=== PATIENT | male | born 1965 | race African-American/Black ===

== ENCOUNTER 2019-02-06 11:04 | Observation (INO) ==
[2019-02-06] MEDS ORDERED: NS 1,000 ML IV ONE (11:56)
[2019-02-06] MEDS ORDERED: ZOFRAN IV ONE ×2 (11:56→14:29)
[2019-02-06 12:10] LABS: BASO# 0.01 X1000 (0.0-0.2); BASO% 0.1 % (0.0-0.8); EOS# 0.13 X1000 (0.0-0.7); EOS% 1.7 % (0.0-10.0); HEMATOCRIT 43.2 % (42.0-52.0); HEMOGLOBIN 15.1 g/dL (14.0-18.0); IMM GRAN# 0.01 X1000 (0.0-0.04); IMM GRAN% 0.1 % (0.0-0.5); LYMPH# 0.48 X1000 (1.2-3.4); LYMPH% 6.3 % (20.5-51.1); MCH 27.3 PG (27-31); MONO# 0.41 X1000 (0.11-0.59); MONO% 5.4 % (1.7-9.3); NEUT# 6.57 X1000 (1.4-6.5); NEUT% 86.4 % (42.2-75.2); PLT 127 X1000 (130-400); RBC 5.54 XMIL (4.7-6.1); RDW 13.6 % (11.5-14.5); WBC 7.61 X1000 (4.8-10.8)
[2019-02-06 12:14] LABS: AGAP 14; ALKALINE PHOSPHATASE 94 U/L (32-122); BUN 10 mg/dL (8-22); CHLORIDE 106 mmol/L (98-107); COSMO 288; CREATININE 0.8 mg/dL (0.7-1.2); ESTIMATED GFR > 60; GLUCOSE 129 mg/dL (70-104); GOT 26 U/L (10-34); GPT 35 U/L (10-44); POTASSIUM 3.9 mmol/L (3.5-5.1); SODIUM 144 mmol/L (136-145); TCO2 24 mmol/L (25-35); TOTAL PROTEIN 7.2 g/dL (6.3-8.3)
--- NOTE | 2019-02-06 12:23 | Diag Imaging Result Doc PS360 ---
CT HEAD W/O CONTRAST - 02/06/2019 INDICATION: gutierrez, nv, weakness. COMPARISON: 06/05/2014 FINDINGS: Stable old lacunar in the anterior limb of the left internal capsule. There is some mild basal ganglia chronic microvascular ischemia on the right side. No intracranial mass or hemorrhage. The skull is intact. Stable small mucosal retention cyst in the right sphenoid sinus. Otherwise the sinuses are clear. IMPRESSION: Nonspecific, chronic appearing white matter microvascular ischemia. No acute process. This exam was performed using automated exposure control, adjustment of mA or kV according to patient size, and/or use of iterative reconstruction technique Electronically signed by Stevie Luther 02/06/2019 12:21 PM
--- NOTE | 2019-02-06 12:35 | ED EKG INTERP ---
This chart was entered by Daxa Duong Scribe, acting as scribe for Radha Marvin DO. EKG Interpretation - EKG Time of EKG reading by physician:: 11:41 EKG Read and Signed by:: Radha Marvin EKG Interpretation (*Must complete 3 of following elements*): Normal Rate: 95 Rhythm: sinus rhythm with premature supraventricular complex w/ occ pvc [place]: normal QRS: PVC's AR Interval: normal ST Wave: normal Attestation - Physician/ KEELY Attestation Patient care was provided by Advanced Practice Provider:: No The physician spent face to face time with patient:: Yes Advanced Practice Provider documentation review:: Supervising physician onsite and consulted in the evaluation and care of this patient. The physician did have a face to face encounter with the patient. This chart was documented by the indicated scribe, (Daxa Duong Scribe) and accurately reflects the services I performed and decisions made by me, Radha Marvin DO, as attested by the provider's signature.
--- NOTE | 2019-02-06 13:39 | EKG Report ---
Test Performed on : 02/06/2019 11:41:55 AM Test Reason : weakness, sob Blood Pressure : / mmHG Vent. Rate : 095 BPM Atrial Rate : 095 BPM P-R Int : 150 ms QRS Dur : 066 ms QT Int : 344 ms P-R-T Axes : 054 017 -10 degrees QTc Int : 432 ms Sinus rhythm. with premature supraventricular complexes. and with occasional premature ventricular co mplexes. Otherwise normal ECG When compared with ECG of 14-MAY-2007 01:34, premature ventricular complexes. are now present premature supraventricular complexes. are now present Unconfirmed Result
--- NOTE | 2019-02-06 14:50 | PROVIDER DOCUMENTATION ---
This chart was entered by Daxa Duong Scribe, acting as scribe for Radha Marvin DO. HPI-General Adult - General Chief Complaint: Dizziness Stated Complaint: DIZZY WEAK Time Seen by Provider: 02/06/19 11:31 Source: patient Allergies/Adverse Reactions: Patient Allergies Allergy/AdvReac Type Severity Reaction Status Date / Time No Known Allergies Allergy Verified 02/06/19 11:10 Home Medications: Home Medication List Medication Instructions Recorded Confirmed Last Taken Type Lisinopril 10 mg PO DAILY 06/05/14 02/06/19 06/05/14 07:00 History Metformin E.r. [Glucophage Xr] 1,000 mg PO BID 06/05/14 02/06/19 06/05/14 07:00 History ATORVAstatin [Lipitor] 10 mg PO QHS 02/06/19 02/06/19 Unknown History - History of Present Illness -Gen Adult Nature of Presenting Problems: 53 yom presents to the ed with acute onset of diffuse weakness, dizziness, FRANCIS and nausea and vomiting x4 this am upon waking. pt on exam is nontoxic in appearance Location of Pain/Injury: reports: generalized (weakness) Quality of Pain: reports: dull (FRANCIS) Severity: reports: moderate Onset/Duration: reports: this morning Timing: reports: still present Context/Activities at Onset: reports: light activity Modifying Factors: improves with: nothing Associated Symptoms: reports: headaches, malaise, nausea, vomiting, weakness. denies: back/neck pain, chest pain, cough, diarrhea, fever/chills, trouble walking Similar Symptoms Previously?: No Recently seen or treated by another doctor?: No Review of Systems - Adult - REVIEW OF SYSTEMS - ADULT Constitutional: denies: chills, fever Eyes: reports: no symptoms reported Ears, Nose, Mouth & Throat: reports: no symptoms reported Cardiovascular: denies: chest pain, palpitations, syncope Respiratory: denies: cough, shortness of breath, wheezing Gastrointestinal: reports: see HPI, nausea, vomiting. denies: abdominal pain, diarrhea Genitourinary: reports: no symptoms reported Musculoskeletal: reports: see HPI, other (generalized weakness). denies: back pain, neck pain Integumentary: reports: no symptoms reported Neurological: reports: see HPI, headache/migraines. denies: ataxia, dizziness/vertigo, slurred speech, tremors Psychiatric: reports: no symptoms reported Endocrine: reports: no symptoms reported Hematologic/Lymphatic: reports: no symptoms reported Allergic/Immunologic: reports: no symptoms reported All Other Systems: Reviewed and Negative Past History - Adult - PAST MEDICAL HISTORY-ADULT Review of Records: reports: Old Records Reviewed, Nursing Assessment Review, Medications Reviewed, Social history reviewed & non-contributory. Major Childhood Illnesses: reports: denies history Cardiovascular: reports: HTN, hyperlipidemia Respiratory: reports: denies history Gastrointestinal: reports: denies history Genitourinary: reports: denies history Musculoskeletal: reports: denies history Hand Dominance: Right Handed Neurological: reports: CVA. denies: stroke deficits Psychiatric: reports: denies history Endocrine/Immune: reports: Diabetes Diabetes Type: Type 2 Other Conditions: reports: denies history - PRIOR SURGERIES/PROCEDURES Surgical/Procedure History: reports: appendectomy - IMMUNIZATION STATUS Childhood Immunizations: See Nurse Assessment Flu Vaccine: See Nurse Assessment - FAMILY HISTORY Family History: reviewed, not pertinent - SOCIAL HISTORY Smoking: denies Substance Use: denies Living Situation: family Physical Exam-General - PHYSICAL EXAM-ADULT Initial Vital Signs Reviewed: Yes - CONSTITUTIONAL General Appearance: alert, mild distress, other (diffuse weakness) - EYES Eyes: PERRL/EOMI, pink conjunctivae - HEAD, EARS, NOSE, MOUTH & THROAT HENMT: moist mucous membranes - NECK Neck: non-tender, full range of motion, supple, normal inspection - RESPIRATORY Respiratory: chest non-tender, lungs clear, normal breath sounds - CARDIOVASCULAR Cardiovascular: normal peripheral pulses, regular rate, rhythm - GASTROINTESTINAL (ABDOMEN) Abdominal Exam: normal bowel sounds, non tender, soft, other (c/o nausea on exam) - GENITOURINARY Male Genitalia: deferred Rectal Exam: deferred Hemoccult Exam: deferred - LYMPHATIC Lymphatic: no adenopathy - MUSCULOSKELETAL Back Exam: normal inspection, no CVA tenderness, no vertebral tenderness Extremity: normal range of motion, non-tender, normal inspection, normal capillary refill - SKIN Integumentary: normal color, normal turgor, warm/dry - NEUROLOGIC Neurologic: grossly normal - PSYCHIATRIC Psych/Mental Status: normal mood/affect, normal thought content, normal thought process, oriented x 3 Progress - PLAN OF CARE/RESULTS Progress/Plan/Lab Results: Vital Signs - 8 hr 02/06/19 11:08 Temperature 97.7 F Pulse Rate 84 Respiratory Rate 18 Blood Pressure 145/91 O2 Sat by Pulse Oximetry 96 Laboratory Results - last 24 hr 02/06/19 02/06/19 02/06/19 11:27 11:30 11:30 WBC 7.61 RBC 5.54 Hgb 15.1 Hct 43.2 MCV 78.0 L MCH 27.3 MCHC 35.0 RDW Std Deviation 13.6 Plt Count 127 L MPV Not Reportable Immature Gran % (Auto) 0.1 Neut % (Auto) 86.4 H Lymph % (Auto) 6.3 L [place] % (Auto) 5.4 Eos % (Auto) 1.7 Baso % (Auto) 0.1 Immature Gran # (Auto) 0.01 Neut # (Auto) 6.57 H Lymph # (Auto) 0.48 L [place] # (Auto) 0.41 Eos # (Auto) 0.13 Baso # (Auto) 0.01 Sodium Potassium Chloride Carbon Dioxide Anion Gap BUN Creatinine Estimated GFR/1.73 m2 BUN/Creatinine Ratio Glucose POC Glucose 123 H D Calculated Osmolality Calcium Total Bilirubin AST ALT Alkaline Phosphatase Troponin T < 0.010 Total Protein Albumin Globulin Albumin/Globulin Ratio 02/06/19 11:30 WBC RBC Hgb Hct MCV MCH MCHC RDW Std Deviation Plt Count MPV Immature Gran % (Auto) Neut % (Auto) Lymph % (Auto) [place] % (Auto) Eos % (Auto) Baso % (Auto) Immature Gran # (Auto) Neut # (Auto) Lymph # (Auto) [place] # (Auto) Eos # (Auto) Baso # (Auto) Sodium 144 Potassium 3.9 Chloride 106 Carbon Dioxide 24 L Anion Gap 14 BUN 10 Creatinine 0.8 Estimated GFR/1.73 m2 > 60 BUN/Creatinine Ratio 13 Glucose 129 H POC Glucose Calculated Osmolality 288 Calcium 10.0 Total Bilirubin 0.80 AST 26 ALT 35 Alkaline Phosphatase 94 Troponin T Total Protein 7.2 Albumin 5.0 Globulin 2.0 Albumin/Globulin Ratio 2.0 Orders Category Date Time Status CT HEAD W/O CONTRAST [CT] Stat Exams 02/06/19 11:54 Completed CBC WITH ELECTRONIC DIFF [HEME] Stat Lab 02/06/19 11:30 Completed COMPREHENSIVE METABOLIC PANEL [CHEM] Stat Lab 02/06/19 11:30 Completed TROPONIN T Stat Lab 02/06/19 11:30 Completed 0.9% Sodium Chloride Inj [Ns] 1,000 ml Med 02/06/19 11:56 Discontinued IV 999 mls/hr Ondansetron [Zofran] Med 02/06/19 11:56 Discontinued 4 mg IV NOW ONE EKG [EKG] Stat Ther 02/06/19 11:54 Ordered Considerations include but not limited to: CVA, TIA, SAH, heat exhaustion, ACS, AMI. His head CT is WNL and CTA head and neck pending at the time of admission. He is neurologically intact, with no new neuro deficits (he states residual history of difficulty speaking from previous CVA). NIH Stroke Scale is 0 based on new symptoms. Given his history or previous CVA and ongoing weakness/nausea, he was admitted to the hospitalist service for further eval and tx. Case discussed with Dr Brizuela. Result Diagrams: 02/07/19 05:07 02/07/19 05:07 - REASSESSMENT Reassessment #1 Time Reassessed: 13:35 Status: improving (pt is calm and resting in bed) - CT/MRI 1 CT Study: Head Impression: See EMR Report (CT HEAD W/O CONTRAST - 02/06/2019 INDICATION: francis, nv, weakness. COMPARISON: 06/05/2014 FINDINGS: Stable old lacunar in the anterior limb of the left internal capsule. There is some mild basal ganglia chronic microvascular ischemia on the right side. No intracranial mass or hemorrhage. The skull is intact. Stable small mucosal retention cyst in the right sphenoid sinus. Otherwise the sinuses are clear. IMPRESSION: Nonspecific, chronic appearing white matter microvascular ischemia. No acute process. This exam was performed using automated exposure control, adjustment of mA or kV according to patient size, and/or use of iterative reconstruction technique Electronically signed by Stevie Luther 02/06/2019 12:21 PM 02/06/19 1221 Interpreting Physician: Stevie Luther MD Dictated Date/Time: 02/06/19 1219 cc: Radha Marvin DO; Juani Iqbal MD) - CONSULTS/PCP/HOSPITALIST Notification #1 *Consult/PCP/Hospitalist*: hospitalist dr brizuela Time Discussed: 14:37 Consult Disposition: Admit Departure - Departure Date of Disposition Decision: 02/06/19 Time of Disposition Decision: 14:49 DIAGNOSIS: Heat exhaustion Qualifiers: Encounter type: initial encounter Qualified Code(s): T67.5XXA - Heat exhaustion, unspecified, initial encounter Nausea & vomiting Qualifiers: Vomiting type: unspecified Vomiting Intractability: non-intractable Qualified Code(s): R11.2 - Nausea with vomiting, unspecified Disposition: ADMITTED INPATIENT 09 Certified Medical Emergency: Emergent Condition: Fair - Critical Care Note This patient required my direct & personal management of CC.: No Attestation - Physician/ KEELY Attestation Patient care was provided by Advanced Practice Provider:: No The physician spent face to face time with patient:: Yes Advanced Practice Provider documentation review:: Supervising physician onsite and consulted in the evaluation and care of this patient. The physician did have a face to face encounter with the patient. This chart was documented by the indicated scribe, (Daxa Duong Scribe) and accurately reflects the services I performed and decisions made by me, Radha Marvin DO, as attested by the provider's signature.
--- NOTE | 2019-02-06 15:17 | Diag Imaging Result Doc PS360 ---
EXAM: CT ANGIOGRAM HEAD/NECK HISTORY: WEAKNESS, NV. H/O PREVIOUS CVA. TECHNIQUE: 1. CT angiogram head with contrast with MIP images 2. CT angiogram neck with contrast with MIP images COMPARISON: None. FINDINGS: Angiogram head: Normal flow within each distal internal carotid artery. Normal filling of the anterior and middle cerebral arteries. Normal flow in the basilar and posterior cerebral arteries. No aneurysm identified. CT angiogram neck: Normal flow within each common carotid artery. Normal flow within each internal carotid artery. No occlusion or stenosis. IMPRESSION: Angiogram head: No abnormality identified Angiogram neck: Normal exam This exam was performed using automated exposure control, adjustment of mA or kV according to patient size, and/or use of iterative reconstruction technique. Electronically signed by Fabricio Escalante 02/06/2019 3:15 PM
[2019-02-06] MEDS ORDERED: ZOFRAN IV PRN (17:05)
[2019-02-06] MEDS: NS 1,000 ML IV SCH ×2 (17:30→23:59)
--- NOTE | 2019-02-06 22:30 | HISTORY AND PHYSICAL ---
CHIEF COMPLAINT: Dizziness, nausea and vomiting. HISTORY OF PRESENT ILLNESS: The patient is a very pleasant 53-year-old male who notes that yesterday he felt in his usual state of health. He went to work this morning and started having dizziness, lightheaded, felt weak and fatigued. Since then he has developed nausea and vomiting. He has vomited several times. Denies any hematemesis, hematochezia or melena. Denies any diarrhea or constipation. He states he has had a headache and diffuse weakness, but no focal weakness. MEDICATIONS: Lisinopril 10, metformin 1000 daily, Lipitor 10. REVIEW OF SYSTEMS: As noted above. Denies any fevers, chills, cough or congestion. Notes that he overall feels bad. He is having nausea and vomiting. Denies any diarrhea or constipation. States he is having generalized weakness, headaches and fatigue. He has had some dizziness. Denies any blurred vision or change in vision. Denies any focalized numbness, tingling or weakness in his extremities. Denies any chest pain or palpitations. Denies true fevers or chills. PAST MEDICAL HISTORY: Hypertension, diabetes, high cholesterol. He had a CVA a couple of years ago. He had an appendectomy several years ago. FAMILY HISTORY: Noncontributory. PHYSICAL EXAMINATION: VITAL SIGNS: Reviewed. Temperature 97 degrees, pulse 84, respiratory rate 18, BP 145/91, saturation 96% on room air. GENERAL: The patient is awake, alert. He is in no current respiratory distress, but he is obviously somewhat tired and fatigued appearing. HEENT: Normocephalic. NECK: Supple. CARDIOVASCULAR: Regular rate. No murmurs. CHEST: Clear, nonlabored. ABDOMEN: Soft, nondistended, nontender. Positive bowel sounds. EXTREMITIES: Moves all extremities. NEUROLOGIC: No focal neurological changes. SKIN: Warm and dry. No rashes. LABORATORY DATA: CBC and CMP essentially normal, with glucose of 129. CPK is currently pending. DIAGNOSTIC DATA: CT head is negative. ASSESSMENT: 1. Nausea and vomiting. 2. Volume depletion. 3. Heat exhaustion. 4. Hypertension. 5. Diabetes. 6. High cholesterol. PLAN: We will admit the patient to the hospital. Continue to follow. Place him on IV fluids. Check CPK. We will hold his metformin and his cholesterol medication tonight, restart after his symptoms improve. cc: Adams Brizuela MD
[2019-02-07] MEDS: TYLENOL PO PRN ×2 (03:37→20:12)
[2019-02-07 05:38] LABS: HEMATOCRIT 36.7 % (42.0-52.0); HEMOGLOBIN 12.5 g/dL (14.0-18.0); MCH 26.9 PG (27-31); MCHC 34.1 g/dL (33-37); MCV 78.9 FL (81-99); PLT 107 X1000 (130-400); RBC 4.65 XMIL (4.7-6.1); RDW 13.4 % (11.5-14.5); WBC 6.28 X1000 (4.8-10.8)
[2019-02-07 05:52] LABS: AGAP 13; ALBUMIN 3.8 g/dL (3.5-5.0); ALKALINE PHOSPHATASE 70 U/L (32-122); BUN 10 mg/dL (8-22); CALCIUM 8.5 mg/dL (8.8-10.2); CHLORIDE 106 mmol/L (98-107); CK TOTAL 133 U/L (24-204); COSMO 283; CREATININE 0.9 mg/dL (0.7-1.2); ESTIMATED GFR > 60; GLUCOSE 107 mg/dL (70-104); GOT 28 U/L (10-34); GPT 32 U/L (10-44); MAGNESIUM 1.5 mg/dL (1.5-2.7); POTASSIUM 3.8 mmol/L (3.5-5.1); SODIUM 142 mmol/L (136-145); TCO2 24 mmol/L (25-35); TOTAL PROTEIN 5.9 g/dL (6.3-8.3)
[2019-02-07] MEDS: NS 1,000 ML IV SCH ×2 (06:45→14:24)
[2019-02-07] MEDS ORDERED: LACTULOSE PO ONE (18:04)
--- NOTE | 2019-02-07 22:07 | PROGRESS NOTE ---
DATE: 02/07/2019 SUBJECTIVE: The patient notes he is feeling better, although, he is still unable to drink. Still having lots of nausea. Incidentally, the patient notes he has not had a bowel movement in 3 weeks. PHYSICAL EXAMINATION: Vital Signs: Reviewed. He is afebrile. Temperature 97.7 degrees, pulse 88, BP 151/78. General: Patient is awake, alert. He is in no current respiratory distress. HEENT: Normocephalic. Neck: Supple. Cardiovascular: Regular rate. No murmurs chest clear and nonlabored. Abdomen: Soft, nondistended, nontender. No apparent masses. Extremities: Moves all extremities. No edema. Neurologic: No focal neurological changes. ASSESSMENT: 1. Chronic constipation. 2. Nausea and vomiting. 3. Volume depletion. 4. Heat exhaustion. 5. Hypertension. 6. Diabetes. PLAN: We are going to continue the patient in the hospital. Continue IV fluids as he has really not been able to drink anything. Certainly, I expect if we send him home, he will be right back. From nausea standpoint, we are going to continue fluids, Zofran and we will follow. We are going to add lactulose tonight for his constipation. If that does not work, in the morning we are going to consider adding Linzess when he has been NPO. cc: Adams Brizuela MD
[2019-02-08] MEDS: NS 1,000 ML IV SCH ×2 (03:05→08:35)
[2019-02-08] MEDS ORDERED: LINZESS PO ONE (08:01)
[2019-02-08 08:20] VITALS: BP 160/97
--- NOTE | 2019-02-09 05:32 | DISCHARGE SUMMARY ---
ADMISSION DATE: 02/06/2019 DISCHARGE DATE: 02/08/2019 DISCHARGE DIAGNOSIS: 1. Nausea, vomiting, resolved. 2. Abdominal pain, resolved. 3. Volume depletion resolved. 4. Heat exhaustion, resolved. 5. Hypertension. 6. Diabetes. 7. High cholesterol. 8. Chronic constipation. CONSULTATIONS: None. PROCEDURES: None. BRIEF HOSPITAL COURSE: Patient is a 53-year-old very pleasant male who presented to the hospital with the above complications of nausea, vomiting, abdominal pain and volume depletion due to heat exhaustion and heat exposure. Over time, he continued to improve. He had not had a bowel movement in several days to a week. He was given medications. After he had a bowel movement, he started feeling better. His nausea improved. He was able to eat and therefore he was discharged home. DISPOSITION: Patient will be discharged home. No changes were made on his chronic home medications of lisinopril, metformin and Lipitor. He will follow up outpatient with primary care of choice. Did discuss with patient the importance of staying hydrated as well as the importance of avoiding getting overheated. Greater than 30 minutes was spent in total care. cc: Adams Brizuela MD
== END 2019-02-08 12:30 | disposition home or self-care (01) ==
LOC: P.ED 11:04 → INTOOBSV 11:05 → P.MEDSURG 11:05
PROVIDERS: ATTEND Family Medicine